=== PATIENT | male | born 1980 | race Hispanic/Latino ===

== ENCOUNTER → 2025-03-19 | Emergency (ER) | payer BC ==
[~2025-03-19] VITALS: Ht 170.2 cm; Wt 92.1 kg
[~2025-03-19] MED LIST: HYDR-3830 PO
--- NOTE | 2025-03-19 13:36 | ERN ---
General Chief Complaint: Insect Bite Stated Complaint: WASP BITE Time Seen by MD: 13:24 History of Present Illness Initial Comments Patient is a 44-year-old male with a history of hyperlipidemia who presents to emergency room via EMS for evaluation of multiple wasp bites. Patient states that he has been stung by bees before in the past and has complained about pain however when he was stung by the wasps while he was outside mowing grass he started feeling itching and pain to his back and lower extremity. He denies any nausea or vomiting. Denies any diarrhea. Denies any shortness a breath or wheezing. Denies any diffuse rash. As per EMS his vitals were stable EN route. No medications were given prior to arrival. Allergies: Coded Allergies: No Known Drug Allergies (Unverified Allergy, Unknown, 03/19/25) Home Meds Active Scripts Hydroxyzine HCl (Hydroxyzine HCl) 10 Mg Tablet, 1 TAB PO BID for itching for 7 Days, #14 TAB 0 Refills Prov:KARI DAS MD 03/19/25 Past Medical History Past Medical History: High Cholesterol, TIA Past Surgical History: None Immunological/Allergic: (+) othe documentation (Positive for insect bite) Review of Systems: was completed, & the rest were negative. Physical Exam General Appearance: (+) no apparent distress Orientation: (+) alert, (+) oriented x 3 Ear, Nose, Throat: (+) hearing grossly normal, (+) normal ENT inspection, (+) moist mucous membraine, (+) normal pharynx Neck: (+) normal inspection, (+) supple Respiratory: (+) chest non-tender, (+) lungs clear, (+) well ventilated Heart: (+) regular Vascular: (+) no edema Gastrointestinal: (+) soft, (+) non-tender Extremities: (+) normal range of motion Neurologic/Psychiatric: (+) normal speech Skin Comment One papule noted to the posterior parietal right scalp. No overlying erythema or excoriations. One papule noted to right lateral upper abdomen with mild excoriations and mild erythema MDM 44-year-old male with a insect bite specifically wasp. No signs or symptoms of anaphylaxis. We will give antihistamine, dose of steroids, and IV fluids and reassess. ED Course Orders Procedure Category Date Status Time Diphenhydramine Hcl PHA 03/19/25 Complete (Benadryl Inj) 13:30 Dexamethasone 4mg/Ml PHA 03/19/25 Complete 1ml Vial (Dexametha 13:30 0.9%Nacl 1000ml (Ns PHA 03/19/25 In Process 1000ml) 13:30 Current Medications Medications (Trade) Dose Ordered Sig/Bambi Route PRN Reason Start Time Stop Time Status Last Admin Dose Admin Dexamethasone Sodium Phosphate (dexaMETHasone 4MG/ML 1ML VIAL) 4 mg ONCE ONCE IV 03/19/25 13:30 03/19/25 13:41 DC 03/19/25 13:55 Diphenhydramine HCl (BENAdryl INJ) 25 mg ONCE ONCE IV 03/19/25 13:30 03/19/25 13:41 DC 03/19/25 13:55 Sodium Chloride 1,000 ml @ 0 mls/hr Q0M IV 03/19/25 13:30 04/18/25 13:29 03/19/25 13:55 Vital Signs Date Time Temp Pulse Resp B/P (MAP) Pulse Ox O2 Delivery O2 Flow Rate FiO2 03/19/25 14:00 98.8 98 20 125/80 96 Room Air* 0 21 03/19/25 13:21 98.4 85 18 136/98 96 Room Air 0 DX & DISP Disposition: Discharge Departure Impression: Primary Impression: Sting from hornet, wasp, or bee Condition: Stable Scripts Hydroxyzine HCl (Hydroxyzine HCl) 10 Mg Tablet 1 TAB PO BID for itching for 7 Days, #14 TAB 0 Refills Prov: KARI DAS MD 03/19/25 KARI DAS MD Mar 19, 2025 13:36
[2025-03-19] MEDS: 0.9%NACL 1000ML 1,000 ML IV SCH (13:55)
[2025-03-19 14:00] VITALS: BP 125/80; PULSE 98; RESP 20; TEMP 98.8; O2SAT 96
== END ==
LOC: EDH 13:20
DX: T63.461A Toxic effect of venom of wasps, accidental (unintentional), initial encounter (principal); E78.00 Pure hypercholesterolemia, unspecified; Z79.899 Other long term (current) drug therapy; Z86.73 Personal history of transient ischemic attack (TIA), and cerebral infarction without residual deficits; Y92.89 Other specified places as the place of occurrence of the external cause
CPT/HCPCS: 99284; 96374; 96375; J1100; J1200